=== PATIENT | male | born 1980 ===

== ENCOUNTER 2021-03-31 09:04 | Outpatient (CLI) | payer OTHER | END 2021-03-31 09:10 | disposition home or self-care (01) | LOC: SONOGRAMA 09:04 | PROVIDERS: ATTEND Family Medicine | DX: Q44.6 Cystic disease of liver (principal); K21.9 Gastro-esophageal reflux disease without esophagitis ==

== ENCOUNTER 2021-05-14 12:32 | Outpatient (CLI) | payer OTHER | END 2021-05-14 12:35 | disposition home or self-care (01) | LOC: SONOGRAMA 12:32 | DX: M75.81 Other shoulder lesions, right shoulder (principal) ==